=== PATIENT | female | born 1975 | race Caucasian/White ===

== ENCOUNTER 2018-01-04 04:58 | Observation (INO) | payer SELFPAY ==
[~2018-01-04] VITALS: Ht 162.6 cm; Wt 74.9 kg
--- NOTE | 2018-01-04 05:31 | PHYS DOC ---
Past Medical History Past Medical History: Diabetes-Type II, Hypertension Past Surgical History: Cholecystectomy Alcohol Use: Occasionally Drug Use: None Adult General Chief Complaint Chief Complaint: COUGH HPI HPI Patient is a 42 year old female p/w cc of cough she had fever and mild cough earlier this week she had body aches and genearlized weakness. last fever was thrusday night she thinks up to 102. the last couple days she has been generally weak hard for her to get out of bed. chest tightenss with coughing. tonight got worse much more sob with lying flat just generally weak. no vomiting or diarrhea. mild h/a with coughing. pmh: denies but hasnt seen md in five year. pt has hx of smoking, and occ etoh. CARE TO shayleemagdalena pending workup in er, broad ddx at this tiem. Review of Systems Review of Systems Constitutional: Eyes: Denies change in visual acuity, redness, or eye pain [] HENT: Denies nasal congestion or sore throat [] Respiratory: Cardiovascular: GI: Denies abdominal pain, nausea, vomiting, bloody stools or diarrhea [] : Denies dysuria Musculoskeletal: Denies back pain or joint pain [] Neurologic: Denies , focal weakness or sensory changes [] Endocrine: Denies polyuria or polydipsia [] All other systems were reviewed and found to be within normal limits, except as documented in this note. Current Medications Current Medications Current Medications Medications (Trade) Dose Ordered Sig/Frederic Start Time Stop Time Status Last Admin Dose Admin Acetaminophen (Tylenol) 1,000 mg 1X ONCE 01/04/18 06:00 01/04/18 06:01 DC 01/04/18 06:06 1,000 MG Albuterol/ Ipratropium (Duoneb) 3 ml 1X ONCE 01/04/18 07:00 01/04/18 07:01 DC 01/04/18 07:33 3 ML Ceftriaxone Sodium 50 ml @ 100 mls/hr 1X ONCE 01/04/18 07:30 01/04/18 07:59 DC 01/04/18 07:33 100 MLS/HR Sodium Chloride 1,000 ml @ 1,000 mls/hr 1X ONCE 01/04/18 07:30 01/04/18 08:29 DC 01/04/18 07:34 1,000 MLS/HR Allergies Allergies Allergies Coded Allergies Type Severity Reaction Last Updated Verified No Known Drug Allergies 11/12/14 No Physical Exam Physical Exam Constitutional: Well developed, well nourished, moderate distress. HENT: Normocephalic, atraumatic, bilateral external ears normal, oropharynx moist, no oral exudates, nose normal. [] Eyes: PERRLA, EOMI, conjunctiva normal, no discharge. [] Neck: Normal range of motion, no tenderness, supple, no stridor. [] Cardiovascular:tachycardic no definite murmur noted. Lungs & Thorax: wheezing noted b/l Abdomen: Bowel sounds normal, soft, no tenderness, no masses, no pulsatile masses. [] Skin: Warm, dry, no erythema, no rash. [] Extremities: No tenderness, no cyanosis, no clubbing, ROM intact, trace symmetric edema Neurologic: Alert and oriented X 3, normal motor function, normal sensory function, no focal deficits noted. [] Psychologic: Affect normal, judgement normal, mood mild anxious Current Patient Data Vital Signs Vital Signs Date Time Temp Pulse Resp B/P (MAP) Pulse Ox O2 Delivery O2 Flow Rate FiO2 01/04/18 07:33 Room Air 01/04/18 07:00 108 28 174/98 (123) 97 01/04/18 05:17 98.3 98.3 Lab Values Laboratory Tests Test 01/04/18 05:35 01/04/18 05:41 01/04/18 08:58 Urine Collection Type Unknown Urine Color Yellow Urine Clarity Clear Urine pH 6.0 Urine Specific [place] >=1.030 Urine Protein 100 mg/dL (NEG-TRACE) Urine Glucose (UA) >=1000 mg/dL (NEG) Urine Ketones (Stick) Negative mg/dL (NEG) Urine Blood Large (NEG) Urine Nitrite Negative (NEG) Urine Bilirubin Negative (NEG) Urine Urobilinogen Dipstick 0.2 mg/dL (0.2 mg/dL) Urine Leukocyte Esterase Negative (NEG) Urine RBC >40 /HPF (0-2) Urine WBC 0 /HPF (0-4) Urine Bacteria 0 /HPF (0-FEW) Urine Opiates Screen Neg (NEG) Urine Methadone Screen Neg (NEG) Urine Barbiturates Neg (NEG) Urine Phencyclidine Screen Neg (NEG) Urine Amphetamine/Methamphetamine Neg (NEG) Urine Benzodiazepines Screen Neg (NEG) Urine Cocaine Screen Neg (NEG) Urine Cannabinoids Screen Neg (NEG) Urine Ethyl Alcohol Neg (NEG) White Blood Count 12.7 x10^3/uL (4.0-11.0) H Red Blood Count 4.93 x10^6/uL (3.50-5.40) Hemoglobin 16.8 g/dL (12.0-15.5) H Hematocrit 47.0 % (36.0-47.0) Mean Corpuscular Volume 95 fL (79-100) Mean Corpuscular Hemoglobin 34 pg (25-35) Mean Corpuscular Hemoglobin Concent 36 g/dL (31-37) Red Cell Distribution Width 12.9 % (11.5-14.5) Platelet Count 280 x10^3/uL (140-400) Neutrophils (%) (Auto) 78 % (31-73) H Lymphocytes (%) (Auto) 15 % (24-48) L Monocytes (%) (Auto) 7 % (0-9) Eosinophils (%) (Auto) 0 % (0-3) Basophils (%) (Auto) 0 % (0-3) Neutrophils # (Auto) 9.8 x10^3uL (1.8-7.7) H Lymphocytes # (Auto) 1.9 x10^3/uL (1.0-4.8) Monocytes # (Auto) 0.9 x10^3/uL (0.0-1.1) Eosinophils # (Auto) 0.1 x10^3/uL (0.0-0.7) Basophils # (Auto) 0.1 x10^3/uL (0.0-0.2) Prothrombin Time 14.0 SEC (11.7-14.0) Prothrombin Time INR 1.1 (0.8-1.1) D-Dimer (Aruna) 0.27 ug/mlFEU (0.00-0.50) Maternal Serum HCG Beta Subunit < 1 mIU/mL (0-5) Sodium Level 135 mmol/L (136-145) L Potassium Level 3.9 mmol/L (3.5-5.1) Chloride Level 98 mmol/L (98-107) Carbon Dioxide Level 27 mmol/L (21-32) Anion Gap 10 (6-14) Blood Urea Nitrogen 2 mg/dL (7-20) L Creatinine 0.8 mg/dL (0.6-1.0) Estimated GFR (Cockcroft-Gault) 79.4 BUN/Creatinine Ratio 3 (6-20) L Glucose Level 327 mg/dL (70-99) H Hemoglobin A1c 8.2 % (4.8-5.6) H Lactic Acid Level 3.8 mmol/L (0.4-2.0) H 3.7 mmol/L (0.4-2.0) H Calcium Level 9.1 mg/dL (8.5-10.1) Total Bilirubin 0.6 mg/dL (0.2-1.0) Aspartate Amino Transferase (AST) 34 U/L (15-37) Alanine Aminotransferase (ALT) 52 U/L (14-59) Alkaline Phosphatase 125 U/L (46-116) H Troponin I Quantitative < 0.017 ng/mL (0.000-0.055) CA-Hua-F-Type Natriuretic Peptide 30 pg/mL (0-124) Total Protein 8.0 g/dL (6.4-8.2) Albumin 3.4 g/dL (3.4-5.0) Albumin/Globulin Ratio 0.7 (1.0-1.7) L Thyroid Stimulating Hormone (TSH) 1.916 uIU/mL (0.358-3.74) Influenza Type A Antigen Negative (NEGATIVE) Influenza Type B Antigen Negative (NEGATIVE) Laboratory Tests 01/04/18 05:41 Laboratory Tests 01/04/18 05:41 Microbiology 01/04/18 Blood Culture - Preliminary, Resulted NO GROWTH AFTER 4 DAYS EKG EKG [] Interpretation Time: Sinus tachycardia rate 119 no acute ischemic changes noted intervals are normal this was interpreted by me the time of the clinical encounter. Radiology/Procedures Radiology/Procedures [ER physician preliminary chest x-ray interpretation: No acute abnormality.] Course & Med Decision Making Course & Med Decision Making Pertinent Labs and Imaging studies reviewed. (See chart for details) []This is a 42-year-old female with a history of smoking who has presented to the emergency room with chief complaint of cough as well as shortness of breath and generalized weakness in the setting of a recent what sounded like a flulike illness earlier this week. Patient is found to have hypertension 186 tachycardic to the 140s patient had wheezing on lung examination concerned about cardiac etiology possibly extensive workup has been initiated EKG x-ray lab work including TSH flu swab cultures lactate BNP troponins d-dimer care to dr reeder pending results. 6:40 AM: Patient is a 42-year-old female who presents to the emergency department for evaluation. Care was assumed from Dr. Fletcher at shift change. She has had a nonproductive cough and shortness of breath for the past several days as well as generalized weakness and some myalgias. She states she had fever and Friday but not since then. She states she has been eating and drinking normally and has not had any vomiting or abdominal pain. She denies any chest pain. She was noted to be tachycardic on arrival. The patient' s labs been reviewed and are notable for an elevated lactic acid. I have reviewed the patient's chest x-ray, I do not see any definite infiltrates. The patient is currently on her menstrual cycle, which likely explains the blood on the urinalysis. She is not having any urinary symptoms. Patient states that 5-6 years ago when she was hospitalized with pneumonia she was on insulin but then her doctor took her off diabetes medications and she is not known to be diabetic at this time. She does not take any other medications. PHYSICAL EXAM: CONSTITUTIONAL: Well developed, well nourished HEAD: normocephalic, atraumatic EENT: PERRL, EOMI. Conjunctivae normal color, sclerae non-icteric; moist mucous membranes. NECK: Supple, non-tender; no meningismus. LUNGS: There are mild scattered wheezes at the lung bases, breathing even and unlabored. Normal air movement. HEART: Regular tachycardia, no murmur CHEST: No deformity; non-tender ABDOMEN: The abdomen is soft, and non-tender, no masses or bruits. EXTREM: Normal ROM; no deformity, no calf tenderness. Normal pulses palpable in all extremities. There is no pedal edema. SKIN: No rash; no diaphoresis NEURO: Alert; normal speech and cognition; CN's grossly intact; strength grossly intact without focal deficit. BACK: No CVA TTP. 8:00 AM: The patient's condition remained stable. She is feeling significantly better after IV hydration and her heart rate is dropped below 100. I do not have a clear bacterial source of her illness, although her clinical diagnoses of bronchitis coupled with her elevated lactic acid, tachycardia, and mild leukocytosis does raise the question of a possible bacterial component to her illness. She will be given a dose of Rocephin intravenously, IV hydration will be initiated and a lactic acid will be rechecked. If her labs improve, as her clinical condition has, the patient will be safe for discharge. I discussed the importance of smoking cessation in detail with the patient, will also start on medication for her diabetes, and hypertension and I stressed importance of establishing care with a primary care provider, in the next several days so that the patient can have these chronic health conditions better managed in an outpatient setting. I discussed importance of close follow-up and return precautions in detail. 9:40 AM: The patient's condition remained stable and she clinically looks well, her heart rate remains about 100 bpm. However her repeat lactic acid is still elevated. Thus the patient will be admitted to the hospital for further evaluation and treatment. Hospitalist has been paged to facilitate admission. Dragon Disclaimer Dragon Disclaimer This electronic medical record was generated, in whole or in part, using a voice recognition dictation system. Departure Departure Impression: Primary Impression: Bronchitis Additional Impressions: Diabetes Hypertension Lactic acidosis Disposition: ADMITTED INPATIENT Admitting Physician: Ansley Momin Condition: STABLE Additional Instructions: Use the list provided of primary care providers to help establish a primary care provider for outpatient follow-up and management of your diabetes and elevated blood pressure. Scripts Insulin Lispro (HUMALOG) 100 Unit/1 Ml Insuln.pen 0 UNITS SQ TIDWMEALS for DM for 30 Days, #1 EACH BG >150 - 4u BG >200 - 5u BG > 250 - 7u BG >300 - 9u Prov: SARAH LOCKETT MD 01/05/18 Glyburide (GLYBURIDE) 5 Mg Tablet 5 MG PO BIDWMEALS for DM for 30 Days, #60 TAB Prov: SARAH LOCKETT MD 01/05/18 Lisinopril (LISINOPRIL) 10 Mg Tablet 10 MG PO DAILY for HTN, DM for 30 Days, #30 TAB Prov: SARAH LOCKETT MD 01/05/18 Problem Qualifiers FRANCESCO FLETCHER MD Jan 04, 2018 05:31 DEVON REEDER MD Jan 04, 2018 06:53
[2018-01-04] MEDS ORDERED: ACETAMINOPHEN 500 MG TABLET PO ONE (06:00)
[2018-01-04] MEDS ORDERED: IV NORMAL SALINE 500ML BAG 500 ML IV ONE (06:00)
[2018-01-04 06:15] LABS: BASO # 0.1 x10^3/uL (0.0-0.2); BASO % 0 % (0-3); EOS # 0.1 x10^3/uL (0.0-0.7); EOS % 0 % (0-3); HEMOGLOBIN 16.8 g/dL (12.0-15.5); LYMPH # 1.9 x10^3/uL (1.0-4.8); LYMPH % 15 % (24-48); MEAN CORPUSCULAR HEMOGLOBIN 34 pg (25-35); MEAN CORPUSCULAR HGB CONC 36 g/dL (31-37); MEAN CORPUSCULAR VOLUME 95 fL (79-100); MONO # 0.9 x10^3/uL (0.0-1.1); MONO % 7 % (0-9); NEUT # 9.8 x10^3uL (1.8-7.7); NEUT % 78 % (31-73); PLATELET COUNT 280 x10^3/uL (140-400); RED BLOOD COUNT 4.93 x10^6/uL (3.50-5.40); RED CELL DISTRIBUTION WIDTH 12.9 % (11.5-14.5); WHITE BLOOD COUNT 12.7 x10^3/uL (4.0-11.0)
[2018-01-04 06:19] LABS: CALCIUM 9.1 mg/dL (8.5-10.1); CREATININE 0.8 mg/dL (0.6-1.0); GFR 79.4; POTASSIUM 3.9 mmol/L (3.5-5.1)
[2018-01-04 06:20] LABS: BILIRUBIN,URINE NEGATIVE (NEG); CLARITY,URINE CLEAR; COLOR,URINE YELLOW; NITRITE,URINE NEGATIVE (NEG); PROTEIN,URINE 100 mg/dL (NEG-TRACE); UROBILINOGEN,URINE 0.2 mg/dL (0.2 mg/dL)
[2018-01-04 06:22] LABS: INFLUENZA A PATIENT NEGATIVE (NEGATIVE); INFLUENZA B PATIENT NEGATIVE (NEGATIVE)
[2018-01-04 06:25] LABS: ALBUMIN 3.4 g/dL (3.4-5.0); ALBUMIN/GLOBULIN RATIO 0.7 (1.0-1.7); TOTAL BILIRUBIN 0.6 mg/dL (0.2-1.0)
[2018-01-04 06:27] LABS: AMPHETAMINE/METHAMPHETAMINE NEG (NEG); BARBITURATES NEG (NEG); BENZODIAZEPINES NEG (NEG); CANNABINOIDS NEG (NEG); COCAINE NEG (NEG); METHADONE NEG (NEG); OPIATES NEG (NEG); PHENCYCLIDINE NEG (NEG)
[2018-01-04 06:39] LABS: BACTERIA,URINE 0 /HPF (0-FEW); RBC,URINE >40 /HPF (0-2); WBC,URINE 0 /HPF (0-4)
[2018-01-04 06:50] LABS: D-DIMER 0.27 ug/mlFEU (0.00-0.50)
[2018-01-04] MEDS ORDERED: IPRATRPIUM/ALBUTEROL 0.5/2.5MG 3 ML NEBU. NEB ONE (07:00)
[2018-01-04] MEDS ORDERED: IV NORMAL SALINE 1000ML BAG 1,000 ML IV ONE ×3 (07:30→10:15)
[2018-01-04] MEDS ORDERED: PROAIR HFA8.5 GM INH (08:00)
[2018-01-04] MEDS ORDERED: METF500T16 PO (08:00)
[2018-01-04] MEDS ORDERED: LISI10TA2 PO (08:00)
[2018-01-04] MEDS ORDERED: AZIT250T6 PO (09:01)
--- NOTE | 2018-01-04 09:35 | RAD ---
Single view chest 01/04/2018 CLINICAL INDICATION: Cough. COMPARISON: None. FINDINGS: Cardiac and mediastinal silhouettes are unremarkable. No pleural effusion, pneumothorax or focal consolidation. IMPRESSION: No acute cardiopulmonary abnormality. Electronically signed by: Jim Iraheta MD (01/04/2018 9:32 AM) [facility]
[2018-01-04] MEDS ORDERED: guaiFENesin DM 200MG/20MG 10 ML SYRUP PO PRN (10:15)
[2018-01-04] MEDS ORDERED: CETIRIZINE HCL 10 MG TABLET. PO PRN (10:15)
[2018-01-04] MEDS ORDERED: HYDROcodone/APAP 5/325MG 1 TAB TABLET PO PRN (10:15)
[2018-01-04] MEDS ORDERED: ONDANSETRON ODT 4 MG TAB.RAPDIS. PO PRN (10:15)
[2018-01-04] MEDS ORDERED: MORPHINE SULFATE 2 MG/ML VIAL. IV PRN (10:15)
[2018-01-04] MEDS ORDERED: ACETAMINOPHEN 500 MG TABLET PO PRN (10:15)
[2018-01-04] MEDS ORDERED: LABETALOL 20 MG/4 ML DISP.SYRIN. IVP PRN (10:15)
[2018-01-04] MEDS ORDERED: ONDANSETRON PF 4 MG/2 ML VIAL. IV PRN (10:15)
[2018-01-04 10:45] VITALS: BP 161/110
[2018-01-04] MEDS ORDERED: IPRATRPIUM/ALBUTEROL 0.5/2.5MG 3 ML NEBU. NEB SCH (11:00)
[2018-01-04] MEDS: IPRATRPIUM/ALBUTEROL 0.5/2.5MG 3 ML NEBU. NEB SCH ×3 (11:30→19:41)
[2018-01-04] MEDS ORDERED: NICOTINE 21MG PATCH. TD PRN (12:45)
[2018-01-04] MEDS ORDERED: ENALAPRILAT 2.5 MG/2 ML VIAL. IVP PRN (12:45)
[2018-01-04] MEDS: IV NORMAL SALINE 1000ML BAG 1,000 ML IV SCH ×2 (12:45→20:26)
--- NOTE | 2018-01-04 12:47 | PDOC1 ---
History and Physical Date of Admission Date of Admission DATE: 01/04/18 TIME: 12:40 Identification/Chief Complaint Chief Complaint Flulike symptoms 1 week Source Source: Caregiver, Chart review, Patient History of Present Illness History of Present Illness 42-year-old female, diabetes but off metformin because of diarrhea, comes in because of flulike symptoms for about a week. Chest x-ray and UA is negative except for glucosuria. But ER could not discharge because lactate was high twice despite 4 L of boluses. WBC 12, she looks nontoxic appearing. Flu is negative. Chest x-rays negative. Agree with admission. She was tachycardic 140s of admission better now after 4 L boluses. Blood pressure initially was high 180s, she is not taking any meds at home SHe describes cough, productive, fever undocumented at home, no diarrhea. She does smoke. She claims there are similar symptoms going around at work. She wa son metformin and insulin at home, but taken off since "not needing it". UNKnown hemoglobin A1c but there is glucosuria on urine. Her sugars are 286 Past Medical History Cardiovascular: HTN Pulmonary: Bronchitis Endocrine: Diabetes Past Surgical History Past Surgical History: Cholecystectomy Family History Family History: Hypertension Social History Smoke: <1 pack per day ALCOHOL: occassional Drugs: None Current Problem List Problem List Problems Medical Problems: (1) Bronchitis Status: Acute (2) Diabetes Status: Acute (3) Hypertension Status: Acute (4) Lactic acidosis Status: Acute Current Medications Current Medications Current Medications Sodium Chloride 500 ml @ 500 mls/hr 1X ONCE IV Last administered on at 06:07; Start 01/04/18 at 06:00; Stop 01/04/18 at 06:59; Status DC Acetaminophen (Tylenol) 1,000 mg 1X ONCE PO Last administered on 01/04/18at 06 :06; Start 01/04/18 at 06:00; Stop 01/04/18 at 06:01; Status DC Sodium Chloride 1,000 ml @ 1,000 mls/hr 1X ONCE IV Last administered on 01/04at 07:33; Start 01/04/18 at 07:30; Stop 01/04/18 at 08:29; Status DC Sodium Chloride 1,000 ml @ 1,000 mls/hr 1X ONCE IV Last administered on 01/04at 07:34; Start 01/04/18 at 07:30; Stop 01/04/18 at 08:29; Status DC Albuterol/ Ipratropium (Duoneb) 3 ml 1X ONCE NEB Last administered on at 07:33; Start 01/04/18 at 07:00; Stop 01/04/18 at 07:01; Status DC Ceftriaxone Sodium 50 ml @ 100 mls/hr 1X ONCE IV Last administered on at 07:33; Start 01/04/18 at 07:30; Stop 01/04/18 at 07:59; Status DC Guaifenesin (Robitussin Dm) 10 ml PRN Q6HRS PRN PO COUGH; Start 01/04/18 at 10 :15 Albuterol/ Ipratropium (Duoneb) 3 ml RTQID NEB Last administered on 01/04/18at 11:30; Start 01/04/18 at 12:00 Acetaminophen (Tylenol) 500 mg PRN Q6HRS PRN PO MILD PAIN / TEMP; Start at 10:15 Labetalol HCl (Normodyne Iv Push) 20 mg PRN Q2HR PRN IVP HYPERTENSION, SEE COMMENTS Last administered on 01/04/18at 11:28; Start 01/04/18 at 10:15 Cetirizine HCl (ZyrTEC) 10 mg PRN DAILY PRN PO ALLERGIES; Start 01/04/18 at 10 :15 Ondansetron HCl (Zofran) 4 mg PRN Q6HRS PRN IV NAUSEA/VOMITING; Start at 10:15 Ondansetron HCl (Zofran Odt) 4 mg PRN Q6HRS PRN PO NAUSEA/VOMITING; Start at 10:15 Morphine Sulfate (Morphine Sulfate) 2 mg PRN Q2HR PRN IV MODERATE TO SEVERE PAIN; Start 01/04/18 at 10:15 Acetaminophen/ Hydrocodone Bitart (Lortab 5/325) 1 tab PRN Q4HRS PRN PO MODERATE PAIN; Start 01/04/18 at 10:15 Sodium Chloride 1,000 ml @ 125 mls/hr 1X ONCE IV Last administered on at 11:36; Start 01/04/18 at 10:15; Stop 01/04/18 at 18:14 Albuterol/ Ipratropium (Duoneb) 3 ml Q6H NEB ; Start 01/04/18 at 11:00; Status UNV Active Scripts Active Allergies Allergies: Coded Allergies: No Known Drug Allergies (Unverified , 11/12/14) ROS Review of System As per history of present illness, the rest of ROS 14 point negative Physical Exam General: Alert, Oriented X3, Cooperative, No acute distress HEENT: Atraumatic, PERRLA, EOMI Lungs: Clear to auscultation, Normal air movement Heart: S1S2, RRR, no thrills, no rubs, no gallops, no murmurs Cardiovascular: S1, S2 Breasts: Normal Abdomen: Normal bowel sounds Male Genitals Exam: normal genitalia, normal prostate Rectal Exam: not examined PELVIC: Nml ext genitalia Extremities: No clubbing, No cyanosis, No edema, Normal pulses, No tenderness/ swelling Skin: No rashes, No breakdown, No significant lesion Neuro: Normal gait, Normal speech, Strength at 5/5 X4 ext, Normal tone, Sensation intact, Cranial nerves 3-12 NL, Reflexes 2+ Psych/Mental Status: Mental status NL, Mood NL Vitals Vitals Vital Signs Date Time Temp Pulse Resp B/P (MAP) Pulse Ox O2 Delivery O2 Flow Rate FiO2 01/04/18 11:31 Room Air 01/04/18 11:28 90 163/106 01/04/18 10:45 97.9 18 95 97.9 Labs Labs Laboratory Tests Test 01/04/18 05:35 01/04/18 05:41 01/04/18 08:58 01/04/18 11:55 Urine Collection Type Unknown Urine Color Yellow Urine Clarity Clear Urine pH 6.0 Urine Specific [place] >=1.030 Urine Protein 100 mg/dL (NEG-TRACE) Urine Glucose (UA) >=1000 mg/dL (NEG) Urine Ketones (Stick) Negative mg/dL (NEG) Urine Blood Large (NEG) Urine Nitrite Negative (NEG) Urine Bilirubin Negative (NEG) Urine Urobilinogen Dipstick 0.2 mg/dL (0.2 mg/dL) Urine Leukocyte Esterase Negative (NEG) Urine RBC >40 /HPF (0-2) Urine WBC 0 /HPF (0-4) Urine Bacteria 0 /HPF (0-FEW) Urine Opiates Screen Neg (NEG) Urine Methadone Screen Neg (NEG) Urine Barbiturates Neg (NEG) Urine Phencyclidine Screen Neg (NEG) Urine Amphetamine/Methamphetamine Neg (NEG) Urine Benzodiazepines Screen Neg (NEG) Urine Cocaine Screen Neg (NEG) Urine Cannabinoids Screen Neg (NEG) Urine Ethyl Alcohol Neg (NEG) White Blood Count 12.7 x10^3/uL (4.0-11.0) Red Blood Count 4.93 x10^6/uL (3.50-5.40) Hemoglobin 16.8 g/dL (12.0-15.5) Hematocrit 47.0 % (36.0-47.0) Mean Corpuscular Volume 95 fL (79-100) Mean Corpuscular Hemoglobin 34 pg (25-35) Mean Corpuscular Hemoglobin Concent 36 g/dL (31-37) Red Cell Distribution Width 12.9 % (11.5-14.5) Platelet Count 280 x10^3/uL (140-400) Neutrophils (%) (Auto) 78 % (31-73) Lymphocytes (%) (Auto) 15 % (24-48) Monocytes (%) (Auto) 7 % (0-9) Eosinophils (%) (Auto) 0 % (0-3) Basophils (%) (Auto) 0 % (0-3) Neutrophils # (Auto) 9.8 x10^3uL (1.8-7.7) Lymphocytes # (Auto) 1.9 x10^3/uL (1.0-4.8) Monocytes # (Auto) 0.9 x10^3/uL (0.0-1.1) Eosinophils # (Auto) 0.1 x10^3/uL (0.0-0.7) Basophils # (Auto) 0.1 x10^3/uL (0.0-0.2) Prothrombin Time 14.0 SEC (11.7-14.0) Prothromb Time International Ratio 1.1 (0.8-1.1) D-Dimer (Aruna) 0.27 ug/mlFEU (0.00-0.50) Maternal Serum HCG Beta Subunit < 1 mIU/mL (0-5) Sodium Level 135 mmol/L (136-145) Potassium Level 3.9 mmol/L (3.5-5.1) Chloride Level 98 mmol/L (98-107) Carbon Dioxide Level 27 mmol/L (21-32) Anion Gap 10 (6-14) Blood Urea Nitrogen 2 mg/dL (7-20) Creatinine 0.8 mg/dL (0.6-1.0) Estimated GFR (Cockcroft-Gault) 79.4 BUN/Creatinine Ratio 3 (6-20) Glucose Level 327 mg/dL (70-99) Lactic Acid Level 3.8 mmol/L (0.4-2.0) 3.7 mmol/L (0.4-2.0) Calcium Level 9.1 mg/dL (8.5-10.1) Total Bilirubin 0.6 mg/dL (0.2-1.0) Aspartate Amino Transf (AST/SGOT) 34 U/L (15-37) Alanine Aminotransferase (ALT/SGPT) 52 U/L (14-59) Alkaline Phosphatase 125 U/L (46-116) Troponin I Quantitative < 0.017 ng/mL (0.000-0.055) MP-Sph-B-Type Natriuretic Peptide 30 pg/mL (0-124) Total Protein 8.0 g/dL (6.4-8.2) Albumin 3.4 g/dL (3.4-5.0) Albumin/Globulin Ratio 0.7 (1.0-1.7) Thyroid Stimulating Hormone (TSH) 1.916 uIU/mL (0.358-3.74) Influenza Type A Antigen Negative (NEGATIVE) Influenza Type B Antigen Negative (NEGATIVE) Glucose (Fingerstick) 247 mg/dL (70-99) Laboratory Tests Test 01/04/18 05:35 01/04/18 05:41 01/04/18 08:58 01/04/18 11:55 Urine Collection Type Unknown Urine Color Yellow Urine Clarity Clear Urine pH 6.0 Urine Specific [place] >=1.030 Urine Protein 100 mg/dL (NEG-TRACE) Urine Glucose (UA) >=1000 mg/dL (NEG) Urine Ketones (Stick) Negative mg/dL (NEG) Urine Blood Large (NEG) Urine Nitrite Negative (NEG) Urine Bilirubin Negative (NEG) Urine Urobilinogen Dipstick 0.2 mg/dL (0.2 mg/dL) Urine Leukocyte Esterase Negative (NEG) Urine RBC >40 /HPF (0-2) Urine WBC 0 /HPF (0-4) Urine Bacteria 0 /HPF (0-FEW) Urine Opiates Screen Neg (NEG) Urine Methadone Screen Neg (NEG) Urine Barbiturates Neg (NEG) Urine Phencyclidine Screen Neg (NEG) Urine Amphetamine/Methamphetamine Neg (NEG) Urine Benzodiazepines Screen Neg (NEG) Urine Cocaine Screen Neg (NEG) Urine Cannabinoids Screen Neg (NEG) Urine Ethyl Alcohol Neg (NEG) White Blood Count 12.7 x10^3/uL (4.0-11.0) Red Blood Count 4.93 x10^6/uL (3.50-5.40) Hemoglobin 16.8 g/dL (12.0-15.5) Hematocrit 47.0 % (36.0-47.0) Mean Corpuscular Volume 95 fL (79-100) Mean Corpuscular Hemoglobin 34 pg (25-35) Mean Corpuscular Hemoglobin Concent 36 g/dL (31-37) Red Cell Distribution Width 12.9 % (11.5-14.5) Platelet Count 280 x10^3/uL (140-400) Neutrophils (%) (Auto) 78 % (31-73) Lymphocytes (%) (Auto) 15 % (24-48) Monocytes (%) (Auto) 7 % (0-9) Eosinophils (%) (Auto) 0 % (0-3) Basophils (%) (Auto) 0 % (0-3) Neutrophils # (Auto) 9.8 x10^3uL (1.8-7.7) Lymphocytes # (Auto) 1.9 x10^3/uL (1.0-4.8) Monocytes # (Auto) 0.9 x10^3/uL (0.0-1.1) Eosinophils # (Auto) 0.1 x10^3/uL (0.0-0.7) Basophils # (Auto) 0.1 x10^3/uL (0.0-0.2) Prothrombin Time 14.0 SEC (11.7-14.0) Prothromb Time International Ratio 1.1 (0.8-1.1) D-Dimer (Aruna) 0.27 ug/mlFEU (0.00-0.50) Maternal Serum HCG Beta Subunit < 1 mIU/mL (0-5) Sodium Level 135 mmol/L (136-145) Potassium Level 3.9 mmol/L (3.5-5.1) Chloride Level 98 mmol/L (98-107) Carbon Dioxide Level 27 mmol/L (21-32) Anion Gap 10 (6-14) Blood Urea Nitrogen 2 mg/dL (7-20) Creatinine 0.8 mg/dL (0.6-1.0) Estimated GFR (Cockcroft-Gault) 79.4 BUN/Creatinine Ratio 3 (6-20) Glucose Level 327 mg/dL (70-99) Lactic Acid Level 3.8 mmol/L (0.4-2.0) 3.7 mmol/L (0.4-2.0) Calcium Level 9.1 mg/dL (8.5-10.1) Total Bilirubin 0.6 mg/dL (0.2-1.0) Aspartate Amino Transf (AST/SGOT) 34 U/L (15-37) Alanine Aminotransferase (ALT/SGPT) 52 U/L (14-59) Alkaline Phosphatase 125 U/L (46-116) Troponin I Quantitative < 0.017 ng/mL (0.000-0.055) TF-Azn-B-Type Natriuretic Peptide 30 pg/mL (0-124) Total Protein 8.0 g/dL (6.4-8.2) Albumin 3.4 g/dL (3.4-5.0) Albumin/Globulin Ratio 0.7 (1.0-1.7) Thyroid Stimulating Hormone (TSH) 1.916 uIU/mL (0.358-3.74) Influenza Type A Antigen Negative (NEGATIVE) Influenza Type B Antigen Negative (NEGATIVE) Glucose (Fingerstick) 247 mg/dL (70-99) VTE Prophylaxis Ordered VTE Prophylaxis Devices: Yes VTE Pharmacological Prophylaxi: Yes Assessment/Plan Assessment/Plan Sepsis, so far workup negative Likely acute viral syndrome Flu negative, UA negative, chest are negative for infection Diabetes type 2 with a unknown hemoglobin [id number] medications, previously on insulin with glucosuria HX intolerance to metformin Accelerated hypertension-not diagnosed hypertensive but BP running high despite IV labetalol pushes Overweight, BMI 31 PLAN: Admit 2 MN IV fluids to address viral syndrome Recheck leukocytosis tomorrow Hold off abx - likely viral only Recheck lactate tomorrow After discussion about metformin is a very good drug to lower his A1c and that insulin is an anabolic hormone and can cause weight gain if use prolonged-type she agrees to try metformin again Last dose of metformin was 5 years ago where she had some abdominal discomfort which seems to be rather mild Metformin 500 twice a day Check hemoglobin A1c Start glyburide twice a day with meals Study scale insulin high-dose Diabetes education Start lisinopril HCTZ-blood pressure still running high despite labetalol Vasotec when necessary Vasotec now Discussed with ALEJANDRA MELCHOR MD Jan 04, 2018 12:47
[2018-01-04] MEDS ORDERED: ENALAPRILAT 2.5 MG/2 ML VIAL. IVP ONE (13:00)
[2018-01-04] MEDS ORDERED: DEXTROSE 50% 25 GM / 50ML DISP.SYRIN. IV PRN (13:00)
[2018-01-04] MEDS: metFORMIN 500 MG TABLET PO SCH ×2 (14:09→18:09)
[2018-01-04] MEDS: hydroCHLOROthiazide 25 MG TABLET PO SCH (14:09)
[2018-01-04] MEDS: glyBURIDE 5 MG TABLET PO SCH ×2 (14:10→18:09)
[2018-01-04] MEDS: INSULIN LISPRO 300 UNITS/3 ML INSULN.PEN. SQ SCH ×2 (14:19→18:15)
[2018-01-04 15:00] VITALS: BP 150/90
--- NOTE | 2018-01-04 17:53 | EKG ---
[facility] [address] [place] [address] Test Date: 2018-01-04 Test Time: 05:40:29 Pat Name: JAIDEN FAN Department: Room: 663 1 Gender: Female Operations General Agent: DAR : 1975 Requested By: FRANCESCO CADE Order Number: [id number] Reading MD: Sb Jack MD Measurements Intervals [place] Rate: 118 P: 56 [place]: 122 QRS: 48 QRSD: 82 T: 38 QT: 332 QTc: 467 Interpretive Statements SINUS TACHYCARDIA Electronically Signed On 01-05-2018 8:27:40 [employer] by Sb Jack MD
[2018-01-04 19:00] VITALS: BP 164/97
[2018-01-04 22:48] VITALS: BP 134/95
[2018-01-05 03:25] VITALS: BP 147/97
[2018-01-05 05:39] LABS: BASO % 1 % (0-3); EOS # 0.1 x10^3/uL (0.0-0.7); EOS % 2 % (0-3); HEMATOCRIT 40.9 % (36.0-47.0); HEMOGLOBIN 14.4 g/dL (12.0-15.5); LYMPH % 39 % (24-48); MEAN CORPUSCULAR HEMOGLOBIN 34 pg (25-35); MEAN CORPUSCULAR HGB CONC 35 g/dL (31-37); MEAN CORPUSCULAR VOLUME 96 fL (79-100); MONO # 0.5 x10^3/uL (0.0-1.1); MONO % 6 % (0-9); NEUT # 4.1 x10^3uL (1.8-7.7); NEUT % 53 % (31-73); PLATELET COUNT 242 x10^3/uL (140-400); RED BLOOD COUNT 4.24 x10^6/uL (3.50-5.40); WHITE BLOOD COUNT 7.7 x10^3/uL (4.0-11.0)
[2018-01-05] MEDS: IPRATRPIUM/ALBUTEROL 0.5/2.5MG 3 ML NEBU. NEB SCH ×2 (07:27→11:17)
[2018-01-05 07:45] VITALS: BP 157/94
[2018-01-05] MEDS: INSULIN LISPRO 300 UNITS/3 ML INSULN.PEN. SQ SCH (08:00)
[2018-01-05] MEDS: hydroCHLOROthiazide 25 MG TABLET PO SCH (08:23)
[2018-01-05] MEDS: metFORMIN 500 MG TABLET PO SCH (08:23)
[2018-01-05] MEDS: glyBURIDE 5 MG TABLET PO SCH (08:24)
[2018-01-05] MEDS ORDERED: LISINOPRIL 10 MG TABLET PO SCH (09:00)
[2018-01-05 11:00] VITALS: BP 137/92
--- NOTE | 2018-01-05 11:55 | PDOC ---
PROGRESS NOTES Chief Complaint Chief Complaint Sepsis Diabetes type 2 with a unknown hemoglobin M2k-ita medications, previously on insulin with glucosuria HX intolerance to metformin Accelerated hypertension Overweight, BMI 31 History of Present Illness History of Present Illness Ms Trujillo is a 42yo F w/ PMHx DM2 admitted with accelerated HTN, lactic acidosis (no abdominal pain), sepsis syndrome, but likely viral bronchitis, negative influenza and she improved quickly with IVF, nausea control and BP control. Assessment/Plan Sepsis, so far workup negative - Likely acute viral syndrome Flu negative, UA negative, chest are negative for infection Diabetes type 2 with a unknown hemoglobin H2f-mxv medications, previously on insulin with glucosuria HX intolerance to metformin Accelerated hypertension-not diagnosed hypertensive but BP running high despite IV labetalol pushes - improved with HCTZ-lisinopril Overweight, BMI 31 lactate down to 2.1 on repeat After discussion about metformin is contraindicated due to her lactic acidosis, will started glyburide twice a day with meals Sliding scale insulin high-dose Diabetes education Started lisinopril HCTZ-blood pressure Vitals Vitals Vital Signs Date Time Temp Pulse Resp B/P (MAP) Pulse Ox O2 Delivery O2 Flow Rate FiO2 01/05/18 11:18 Room Air 01/05/18 11:00 98.1 86 18 137/92 (107) 98 98.1 Physical Exam General: Alert, Oriented X3, Cooperative, No acute distress Abdomen: Normal bowel sounds Extremities: No clubbing, No cyanosis, No edema, Normal pulses, No tenderness/ swelling Skin: No rashes, No breakdown, No significant lesion Labs LABS Laboratory Tests Test 01/04/18 17:05 01/04/18 20:40 01/05/18 05:10 01/05/18 07:54 Glucose (Fingerstick) 212 mg/dL (70-99) 87 mg/dL (70-99) 109 mg/dL (70-99) White Blood Count 7.7 x10^3/uL (4.0-11.0) Red Blood Count 4.24 x10^6/uL (3.50-5.40) Hemoglobin 14.4 g/dL (12.0-15.5) Hematocrit 40.9 % (36.0-47.0) Mean Corpuscular Volume 96 fL (79-100) Mean Corpuscular Hemoglobin 34 pg (25-35) Mean Corpuscular Hemoglobin Concent 35 g/dL (31-37) Red Cell Distribution Width 13.0 % (11.5-14.5) Platelet Count 242 x10^3/uL (140-400) Neutrophils (%) (Auto) 53 % (31-73) Lymphocytes (%) (Auto) 39 % (24-48) Monocytes (%) (Auto) 6 % (0-9) Eosinophils (%) (Auto) 2 % (0-3) Basophils (%) (Auto) 1 % (0-3) Neutrophils # (Auto) 4.1 x10^3uL (1.8-7.7) Lymphocytes # (Auto) 3.0 x10^3/uL (1.0-4.8) Monocytes # (Auto) 0.5 x10^3/uL (0.0-1.1) Eosinophils # (Auto) 0.1 x10^3/uL (0.0-0.7) Basophils # (Auto) 0.0 x10^3/uL (0.0-0.2) Lactic Acid Level 2.1 mmol/L (0.4-2.0) Test 01/05/18 11:39 Glucose (Fingerstick) 176 mg/dL (70-99) Assessment and Plan Assessmemt and Plan Problems Medical Problems: (1) Bronchitis Status: Acute (2) Diabetes Status: Acute (3) Hypertension Status: Acute (4) Lactic acidosis Status: Acute Comment Review of Relevant I have reviewed the following items nancy (where applicable) has been applied. Labs Laboratory Tests Test 01/04/18 05:35 01/04/18 05:41 01/04/18 08:58 01/04/18 11:55 Urine Collection Type Unknown Urine Color Yellow Urine Clarity Clear Urine pH 6.0 Urine Specific [place] >=1.030 Urine Protein 100 mg/dL (NEG-TRACE) Urine Glucose (UA) >=1000 mg/dL (NEG) Urine Ketones (Stick) Negative mg/dL (NEG) Urine Blood Large (NEG) Urine Nitrite Negative (NEG) Urine Bilirubin Negative (NEG) Urine Urobilinogen Dipstick 0.2 mg/dL (0.2 mg/dL) Urine Leukocyte Esterase Negative (NEG) Urine RBC >40 /HPF (0-2) Urine WBC 0 /HPF (0-4) Urine Bacteria 0 /HPF (0-FEW) Urine Opiates Screen Neg (NEG) Urine Methadone Screen Neg (NEG) Urine Barbiturates Neg (NEG) Urine Phencyclidine Screen Neg (NEG) Urine Amphetamine/Methamphetamine Neg (NEG) Urine Benzodiazepines Screen Neg (NEG) Urine Cocaine Screen Neg (NEG) Urine Cannabinoids Screen Neg (NEG) Urine Ethyl Alcohol Neg (NEG) White Blood Count 12.7 x10^3/uL (4.0-11.0) Red Blood Count 4.93 x10^6/uL (3.50-5.40) Hemoglobin 16.8 g/dL (12.0-15.5) Hematocrit 47.0 % (36.0-47.0) Mean Corpuscular Volume 95 fL (79-100) Mean Corpuscular Hemoglobin 34 pg (25-35) Mean Corpuscular Hemoglobin Concent 36 g/dL (31-37) Red Cell Distribution Width 12.9 % (11.5-14.5) Platelet Count 280 x10^3/uL (140-400) Neutrophils (%) (Auto) 78 % (31-73) Lymphocytes (%) (Auto) 15 % (24-48) Monocytes (%) (Auto) 7 % (0-9) Eosinophils (%) (Auto) 0 % (0-3) Basophils (%) (Auto) 0 % (0-3) Neutrophils # (Auto) 9.8 x10^3uL (1.8-7.7) Lymphocytes # (Auto) 1.9 x10^3/uL (1.0-4.8) Monocytes # (Auto) 0.9 x10^3/uL (0.0-1.1) Eosinophils # (Auto) 0.1 x10^3/uL (0.0-0.7) Basophils # (Auto) 0.1 x10^3/uL (0.0-0.2) Prothrombin Time 14.0 SEC (11.7-14.0) Prothromb Time International Ratio 1.1 (0.8-1.1) D-Dimer (Aruna) 0.27 ug/mlFEU (0.00-0.50) Maternal Serum HCG Beta Subunit < 1 mIU/mL (0-5) Sodium Level 135 mmol/L (136-145) Potassium Level 3.9 mmol/L (3.5-5.1) Chloride Level 98 mmol/L (98-107) Carbon Dioxide Level 27 mmol/L (21-32) Anion Gap 10 (6-14) Blood Urea Nitrogen 2 mg/dL (7-20) Creatinine 0.8 mg/dL (0.6-1.0) Estimated GFR (Cockcroft-Gault) 79.4 BUN/Creatinine Ratio 3 (6-20) Glucose Level 327 mg/dL (70-99) Lactic Acid Level 3.8 mmol/L (0.4-2.0) 3.7 mmol/L (0.4-2.0) Calcium Level 9.1 mg/dL (8.5-10.1) Total Bilirubin 0.6 mg/dL (0.2-1.0) Aspartate Amino Transf (AST/SGOT) 34 U/L (15-37) Alanine Aminotransferase (ALT/SGPT) 52 U/L (14-59) Alkaline Phosphatase 125 U/L (46-116) Troponin I Quantitative < 0.017 ng/mL (0.000-0.055) OG-Mwo-U-Type Natriuretic Peptide 30 pg/mL (0-124) Total Protein 8.0 g/dL (6.4-8.2) Albumin 3.4 g/dL (3.4-5.0) Albumin/Globulin Ratio 0.7 (1.0-1.7) Thyroid Stimulating Hormone (TSH) 1.916 uIU/mL (0.358-3.74) Influenza Type A Antigen Negative (NEGATIVE) Influenza Type B Antigen Negative (NEGATIVE) Glucose (Fingerstick) 247 mg/dL (70-99) Test 01/04/18 17:05 01/04/18 20:40 01/05/18 05:10 01/05/18 07:54 Glucose (Fingerstick) 212 mg/dL (70-99) 87 mg/dL (70-99) 109 mg/dL (70-99) White Blood Count 7.7 x10^3/uL (4.0-11.0) Red Blood Count 4.24 x10^6/uL (3.50-5.40) Hemoglobin 14.4 g/dL (12.0-15.5) Hematocrit 40.9 % (36.0-47.0) Mean Corpuscular Volume 96 fL (79-100) Mean Corpuscular Hemoglobin 34 pg (25-35) Mean Corpuscular Hemoglobin Concent 35 g/dL (31-37) Red Cell Distribution Width 13.0 % (11.5-14.5) Platelet Count 242 x10^3/uL (140-400) Neutrophils (%) (Auto) 53 % (31-73) Lymphocytes (%) (Auto) 39 % (24-48) Monocytes (%) (Auto) 6 % (0-9) Eosinophils (%) (Auto) 2 % (0-3) Basophils (%) (Auto) 1 % (0-3) Neutrophils # (Auto) 4.1 x10^3uL (1.8-7.7) Lymphocytes # (Auto) 3.0 x10^3/uL (1.0-4.8) Monocytes # (Auto) 0.5 x10^3/uL (0.0-1.1) Eosinophils # (Auto) 0.1 x10^3/uL (0.0-0.7) Basophils # (Auto) 0.0 x10^3/uL (0.0-0.2) Lactic Acid Level 2.1 mmol/L (0.4-2.0) Test 01/05/18 11:39 Glucose (Fingerstick) 176 mg/dL (70-99) Laboratory Tests Test 01/04/18 17:05 01/04/18 20:40 01/05/18 05:10 01/05/18 07:54 Glucose (Fingerstick) 212 mg/dL (70-99) 87 mg/dL (70-99) 109 mg/dL (70-99) White Blood Count 7.7 x10^3/uL (4.0-11.0) Red Blood Count 4.24 x10^6/uL (3.50-5.40) Hemoglobin 14.4 g/dL (12.0-15.5) Hematocrit 40.9 % (36.0-47.0) Mean Corpuscular Volume 96 fL (79-100) Mean Corpuscular Hemoglobin 34 pg (25-35) Mean Corpuscular Hemoglobin Concent 35 g/dL (31-37) Red Cell Distribution Width 13.0 % (11.5-14.5) Platelet Count 242 x10^3/uL (140-400) Neutrophils (%) (Auto) 53 % (31-73) Lymphocytes (%) (Auto) 39 % (24-48) Monocytes (%) (Auto) 6 % (0-9) Eosinophils (%) (Auto) 2 % (0-3) Basophils (%) (Auto) 1 % (0-3) Neutrophils # (Auto) 4.1 x10^3uL (1.8-7.7) Lymphocytes # (Auto) 3.0 x10^3/uL (1.0-4.8) Monocytes # (Auto) 0.5 x10^3/uL (0.0-1.1) Eosinophils # (Auto) 0.1 x10^3/uL (0.0-0.7) Basophils # (Auto) 0.0 x10^3/uL (0.0-0.2) Lactic Acid Level 2.1 mmol/L (0.4-2.0) Test 01/05/18 11:39 Glucose (Fingerstick) 176 mg/dL (70-99) Microbiology 01/04/18 Blood Culture - Preliminary, Resulted NO GROWTH AFTER 1 DAY Medications Current Medications Sodium Chloride 500 ml @ 500 mls/hr 1X ONCE IV Last administered on at 06:07; Start 01/04/18 at 06:00; Stop 01/04/18 at 06:59; Status DC Acetaminophen (Tylenol) 1,000 mg 1X ONCE PO Last administered on 01/04/18at 06 :06; Start 01/04/18 at 06:00; Stop 01/04/18 at 06:01; Status DC Sodium Chloride 1,000 ml @ 1,000 mls/hr 1X ONCE IV Last administered on 01/04at 07:33; Start 01/04/18 at 07:30; Stop 01/04/18 at 08:29; Status DC Sodium Chloride 1,000 ml @ 1,000 mls/hr 1X ONCE IV Last administered on 01/04at 07:34; Start 01/04/18 at 07:30; Stop 01/04/18 at 08:29; Status DC Albuterol/ Ipratropium (Duoneb) 3 ml 1X ONCE NEB Last administered on at 07:33; Start 01/04/18 at 07:00; Stop 01/04/18 at 07:01; Status DC Ceftriaxone Sodium 50 ml @ 100 mls/hr 1X ONCE IV Last administered on at 07:33; Start 01/04/18 at 07:30; Stop 01/04/18 at 07:59; Status DC Guaifenesin (Robitussin Dm) 10 ml PRN Q6HRS PRN PO COUGH; Start 01/04/18 at 10 :15 Albuterol/ Ipratropium (Duoneb) 3 ml RTQID NEB Last administered on 01/05/18at 11:17; Start 01/04/18 at 12:00 Acetaminophen (Tylenol) 500 mg PRN Q6HRS PRN PO MILD PAIN / TEMP Last administered on 01/04/18at 20:26; Start 01/04/18 at 10:15 Labetalol HCl (Normodyne Iv Push) 20 mg PRN Q2HR PRN IVP HYPERTENSION, SEE COMMENTS Last administered on 01/04/18at 11:28; Start 01/04/18 at 10:15 Cetirizine HCl (ZyrTEC) 10 mg PRN DAILY PRN PO ALLERGIES; Start 01/04/18 at 10 :15 Ondansetron HCl (Zofran) 4 mg PRN Q6HRS PRN IV NAUSEA/VOMITING; Start at 10:15 Ondansetron HCl (Zofran Odt) 4 mg PRN Q6HRS PRN PO NAUSEA/VOMITING; Start at 10:15 Morphine Sulfate (Morphine Sulfate) 2 mg PRN Q2HR PRN IV MODERATE TO SEVERE PAIN; Start 01/04/18 at 10:15 Acetaminophen/ Hydrocodone Bitart (Lortab 5/325) 1 tab PRN Q4HRS PRN PO MODERATE PAIN; Start 01/04/18 at 10:15 Sodium Chloride 1,000 ml @ 125 mls/hr 1X ONCE IV Last administered on at 11:36; Start 01/04/18 at 10:15; Stop 01/04/18 at 18:14; Status DC Albuterol/ Ipratropium (Duoneb) 3 ml Q6H NEB ; Start 01/04/18 at 11:00; Status UNV Metformin HCl (Glucophage) 500 mg BIDWMEALS PO Last administered on 01/05/18at 08:23; Start 01/04/18 at 13:00 Glyburide (Diabeta) 5 mg BIDWMEALS PO Last administered on 01/05/18at 08:24; Start 01/04/18 at 13:00 Sodium Chloride 1,000 ml @ 100 mls/hr Q10H IV Last administered on 01/04/18at 20:26; Start 01/04/18 at 12:45 Nicotine (Nicoderm Cq 21mg) 1 patch PRN DAILY PRN TD SMOKING CESSATION; Start 01/04/18 at 12:45 Enalaprilat (Vasotec Inj) 2.5 mg PRN Q6HRS PRN IVP HYPERTENSION, SEE COMMENTS; Start 01/04/18 at 12:45 Enalaprilat (Vasotec Inj) 2.5 mg 1X ONCE IVP Last administered on 01/04/18at 14:08; Start 01/04/18 at 13:00; Stop 01/04/18 at 13:01; Status DC Lisinopril (Prinivil) 10 mg DAILY PO Last administered on 01/05/18at 08:23; Start 01/05/18 at 09:00 Hydrochlorothiazide (Hydrodiuril) 25 mg DAILY PO Last administered on at 08:23; Start 01/04/18 at 13:00 Insulin Human Lispro (HumaLOG) 0-9 UNITS TIDWMEALS SQ Last administered on at 18:15; Start 01/04/18 at 13:00 Dextrose (Dextrose 50%-Water Syringe) 12.5 gm PRN Q15MIN PRN IV SEE COMMENTS; Start 01/04/18 at 13:00 Active Scripts Active Vitals/I & O Vital Sign - Last 24 Hours 01/04/18 01/04/18 01/04/18 01/04/18 14:08 15:00 15:40 19:00 Temp 97.9 98.5 97.9 98.5 Pulse 90 99 99 Resp 18 18 B/P (MAP) 163/106 150/90 (110) 164/97 (119) Pulse Ox 97 95 O2 Delivery Room Air Room Air Room Air 01/04/18 01/04/18 01/05/18 01/05/18 19:42 22:48 03:25 07:27 Temp 98.4 98.2 98.4 98.2 Pulse 94 65 Resp 18 20 B/P (MAP) 134/95 (108) 147/97 (114) Pulse Ox 97 96 O2 Delivery Room Air Room Air Room Air Room Air 01/05/18 01/05/18 01/05/18 01/05/18 07:45 08:23 11:00 11:18 Temp 98.0 98.1 98.0 98.1 Pulse 90 90 86 Resp 20 18 B/P (MAP) 157/94 (115) 157/94 137/92 (107) Pulse Ox 94 98 O2 Delivery Room Air Room Air Room Air Intake and Output 01/04/18 01/04/18 01/05/18 15:00 23:00 07:00 Intake Total 2050 ml 1025 ml Balance 2050 ml 1025 ml SARAH LOCKETT MD Jan 05, 2018 11:55
[2018-01-05] MEDS ORDERED: INSU100I11 SQ (13:24)
[2018-01-05] MEDS ORDERED: LISI10TA2 PO (13:24)
[2018-01-05] MEDS ORDERED: GLYB5TAB3 PO (13:24)
--- NOTE | 2018-01-05 13:25 | PDOC3 ---
Discharge Summary Visit Information Date of Admission: Jan 04, 2018 Date of Discharge: Jan 05, 2018 Admitting Diagnosis: Bronchitis Final Diagnosis Problems Medical Problems: (1) Bronchitis Status: Acute (2) Diabetes Status: Acute (3) Hypertension Status: Acute (4) Lactic acidosis Status: Acute Brief Hospital Course Allergies Allergies Coded Allergies Type Severity Reaction Last Updated Verified No Known Drug Allergies 11/12/14 No Vital Signs Vital Signs Date Time Temp Pulse Resp B/P (MAP) Pulse Ox O2 Delivery O2 Flow Rate FiO2 01/05/18 11:18 Room Air 01/05/18 11:00 98.1 86 18 137/92 (107) 98 98.1 Lab Results Laboratory Tests Test 01/04/18 05:35 01/04/18 05:41 01/04/18 08:58 01/04/18 11:55 Urine Collection Type Unknown Urine Color Yellow Urine Clarity Clear Urine pH 6.0 Urine Specific [place] >=1.030 Urine Protein 100 mg/dL (NEG-TRACE) Urine Glucose (UA) >=1000 mg/dL (NEG) Urine Ketones (Stick) Negative mg/dL (NEG) Urine Blood Large (NEG) Urine Nitrite Negative (NEG) Urine Bilirubin Negative (NEG) Urine Urobilinogen Dipstick 0.2 mg/dL (0.2 mg/dL) Urine Leukocyte Esterase Negative (NEG) Urine RBC >40 /HPF (0-2) Urine WBC 0 /HPF (0-4) Urine Bacteria 0 /HPF (0-FEW) Urine Opiates Screen Neg (NEG) Urine Methadone Screen Neg (NEG) Urine Barbiturates Neg (NEG) Urine Phencyclidine Screen Neg (NEG) Urine Amphetamine/Methamphetamine Neg (NEG) Urine Benzodiazepines Screen Neg (NEG) Urine Cocaine Screen Neg (NEG) Urine Cannabinoids Screen Neg (NEG) Urine Ethyl Alcohol Neg (NEG) White Blood Count 12.7 x10^3/uL (4.0-11.0) Red Blood Count 4.93 x10^6/uL (3.50-5.40) Hemoglobin 16.8 g/dL (12.0-15.5) Hematocrit 47.0 % (36.0-47.0) Mean Corpuscular Volume 95 fL (79-100) Mean Corpuscular Hemoglobin 34 pg (25-35) Mean Corpuscular Hemoglobin Concent 36 g/dL (31-37) Red Cell Distribution Width 12.9 % (11.5-14.5) Platelet Count 280 x10^3/uL (140-400) Neutrophils (%) (Auto) 78 % (31-73) Lymphocytes (%) (Auto) 15 % (24-48) Monocytes (%) (Auto) 7 % (0-9) Eosinophils (%) (Auto) 0 % (0-3) Basophils (%) (Auto) 0 % (0-3) Neutrophils # (Auto) 9.8 x10^3uL (1.8-7.7) Lymphocytes # (Auto) 1.9 x10^3/uL (1.0-4.8) Monocytes # (Auto) 0.9 x10^3/uL (0.0-1.1) Eosinophils # (Auto) 0.1 x10^3/uL (0.0-0.7) Basophils # (Auto) 0.1 x10^3/uL (0.0-0.2) Prothrombin Time 14.0 SEC (11.7-14.0) Prothromb Time International Ratio 1.1 (0.8-1.1) D-Dimer (Aruna) 0.27 ug/mlFEU (0.00-0.50) Maternal Serum HCG Beta Subunit < 1 mIU/mL (0-5) Sodium Level 135 mmol/L (136-145) Potassium Level 3.9 mmol/L (3.5-5.1) Chloride Level 98 mmol/L (98-107) Carbon Dioxide Level 27 mmol/L (21-32) Anion Gap 10 (6-14) Blood Urea Nitrogen 2 mg/dL (7-20) Creatinine 0.8 mg/dL (0.6-1.0) Estimated GFR (Cockcroft-Gault) 79.4 BUN/Creatinine Ratio 3 (6-20) Glucose Level 327 mg/dL (70-99) Lactic Acid Level 3.8 mmol/L (0.4-2.0) 3.7 mmol/L (0.4-2.0) Calcium Level 9.1 mg/dL (8.5-10.1) Total Bilirubin 0.6 mg/dL (0.2-1.0) Aspartate Amino Transf (AST/SGOT) 34 U/L (15-37) Alanine Aminotransferase (ALT/SGPT) 52 U/L (14-59) Alkaline Phosphatase 125 U/L (46-116) Troponin I Quantitative < 0.017 ng/mL (0.000-0.055) NH-Aoq-R-Type Natriuretic Peptide 30 pg/mL (0-124) Total Protein 8.0 g/dL (6.4-8.2) Albumin 3.4 g/dL (3.4-5.0) Albumin/Globulin Ratio 0.7 (1.0-1.7) Thyroid Stimulating Hormone (TSH) 1.916 uIU/mL (0.358-3.74) Influenza Type A Antigen Negative (NEGATIVE) Influenza Type B Antigen Negative (NEGATIVE) Glucose (Fingerstick) 247 mg/dL (70-99) Test 01/04/18 17:05 01/04/18 20:40 01/05/18 05:10 01/05/18 07:54 Glucose (Fingerstick) 212 mg/dL (70-99) 87 mg/dL (70-99) 109 mg/dL (70-99) White Blood Count 7.7 x10^3/uL (4.0-11.0) Red Blood Count 4.24 x10^6/uL (3.50-5.40) Hemoglobin 14.4 g/dL (12.0-15.5) Hematocrit 40.9 % (36.0-47.0) Mean Corpuscular Volume 96 fL (79-100) Mean Corpuscular Hemoglobin 34 pg (25-35) Mean Corpuscular Hemoglobin Concent 35 g/dL (31-37) Red Cell Distribution Width 13.0 % (11.5-14.5) Platelet Count 242 x10^3/uL (140-400) Neutrophils (%) (Auto) 53 % (31-73) Lymphocytes (%) (Auto) 39 % (24-48) Monocytes (%) (Auto) 6 % (0-9) Eosinophils (%) (Auto) 2 % (0-3) Basophils (%) (Auto) 1 % (0-3) Neutrophils # (Auto) 4.1 x10^3uL (1.8-7.7) Lymphocytes # (Auto) 3.0 x10^3/uL (1.0-4.8) Monocytes # (Auto) 0.5 x10^3/uL (0.0-1.1) Eosinophils # (Auto) 0.1 x10^3/uL (0.0-0.7) Basophils # (Auto) 0.0 x10^3/uL (0.0-0.2) Lactic Acid Level 2.1 mmol/L (0.4-2.0) Test 01/05/18 11:39 Glucose (Fingerstick) 176 mg/dL (70-99) Laboratory Tests Test 01/04/18 17:05 01/04/18 20:40 01/05/18 05:10 01/05/18 07:54 Glucose (Fingerstick) 212 mg/dL (70-99) 87 mg/dL (70-99) 109 mg/dL (70-99) White Blood Count 7.7 x10^3/uL (4.0-11.0) Red Blood Count 4.24 x10^6/uL (3.50-5.40) Hemoglobin 14.4 g/dL (12.0-15.5) Hematocrit 40.9 % (36.0-47.0) Mean Corpuscular Volume 96 fL (79-100) Mean Corpuscular Hemoglobin 34 pg (25-35) Mean Corpuscular Hemoglobin Concent 35 g/dL (31-37) Red Cell Distribution Width 13.0 % (11.5-14.5) Platelet Count 242 x10^3/uL (140-400) Neutrophils (%) (Auto) 53 % (31-73) Lymphocytes (%) (Auto) 39 % (24-48) Monocytes (%) (Auto) 6 % (0-9) Eosinophils (%) (Auto) 2 % (0-3) Basophils (%) (Auto) 1 % (0-3) Neutrophils # (Auto) 4.1 x10^3uL (1.8-7.7) Lymphocytes # (Auto) 3.0 x10^3/uL (1.0-4.8) Monocytes # (Auto) 0.5 x10^3/uL (0.0-1.1) Eosinophils # (Auto) 0.1 x10^3/uL (0.0-0.7) Basophils # (Auto) 0.0 x10^3/uL (0.0-0.2) Lactic Acid Level 2.1 mmol/L (0.4-2.0) Test 01/05/18 11:39 Glucose (Fingerstick) 176 mg/dL (70-99) Brief Hospital Course Ms Trujillo is a 42yo F w/ PMHx DM2 admitted with accelerated HTN, lactic acidosis (no abdominal pain), sepsis syndrome, but likely viral bronchitis, negative influenza and she improved quickly with IVF, nausea control and BP control. Assessment/Plan Sepsis, so far workup negative - Likely acute viral syndrome Flu negative, UA negative, chest are negative for infection Diabetes type 2 with a unknown hemoglobin [id number] medications, previously on insulin with glucosuria HX intolerance to metformin Accelerated hypertension-not diagnosed hypertensive but BP running high despite IV labetalol pushes - improved with HCTZ-lisinopril Overweight, BMI 31 lactate down to 2.1 on repeat After discussion about metformin is contraindicated due to her lactic acidosis, will started glyburide twice a day with meals Sliding scale insulin high-dose Diabetes education Started lisinopril HCTZ-blood pressure Discharge Information Condition at Discharge: Improved Follow Up: Weeks (2) Disposition/Orders: D/C to Home Scheduled Glyburide (Glyburide) 5 Mg Tablet, 5 MG PO BIDWMEALS for DM for 30 Days, #60 Prescribed by: SARAH LOCKETT MD on 01/05/18 1324 Insulin Lispro (Humalog) 100 Unit/1 Ml Insuln.pen, 0 UNITS SQ TIDWMEALS for DM for 30 Days, #1 BG >150 - 4u BG >200 - 5u BG > 250 - 7u BG >300 - 9u Prescribed by: SARAH LOCKETT MD on 01/05/18 1324 Lisinopril (Lisinopril) 10 Mg Tablet, 10 MG PO DAILY for HTN, DM for 30 Days, # 30 Prescribed by: SARAH LOCKETT MD on 01/05/18 1324 Discontinued Medications Albuterol Sulfate (Proair Hfa Inhaler) 8.5 Gm Hfa.aer.ad, 1 PUFF INH PRN Q6HRS PRN for SHORTNESS OF BREATH, #1 Ref 0 Prescribed by: DEVON REEDER MD on 01/04/18 0800 Azithromycin (Azithromycin Tablet) 250 Mg Tablet, 1 PKG PO UD, #6 Prescribed by: DEVON REEDER MD on 01/04/18 0901 Lisinopril (Lisinopril) 10 Mg Tablet, 1 TAB PO DAILY, #30 Ref 0 Prescribed by: DEVON REEDER MD on 01/04/18 0800 Metformin Hcl (Metformin Hcl) 500 Mg Tablet, 500 MG PO BIDWMEALS for ANTI- DIABETIC, #60 Ref 0 Prescribed by: DEVON REEDER MD on 01/04/18 0800 SARAH LOCKETT MD Jan 05, 2018 13:25
[2018-01-05 22:10] LABS: HEMOGLOBIN A1C 8.2 % (4.8-5.6)
== END 2018-01-05 13:50 | disposition home or self-care (01) ==
LOC: ER 04:58 → 6 SOUTH 10:12 → 5 SOUTH 01-05 07:43
PROVIDERS: ADMIT Internal Medicine; ATTEND Internal Medicine
DX: J40 Bronchitis, not specified as acute or chronic (principal); E11.9 Type 2 diabetes mellitus without complications; I10 Essential (primary) hypertension; E87.2 Acidosis; A41.9 Sepsis, unspecified organism; E66.3 Overweight; F17.210 Nicotine dependence, cigarettes, uncomplicated; Z68.31 Body mass index [BMI] 31.0-31.9, adult; Z82.49 Family history of ischemic heart disease and other diseases of the circulatory system
CPT/HCPCS: 36415; 71045; 80053; 80307; 81001; 82962; 83036; 83605; 83880; 84443; 84484; 84702; 85025; 85379; 85610; 87040; 87804; 93005; 94640; 96365; 96372; 96375; 99284; G0378; J0690; J1815; J3490; J7030; J7040; J7620; 96361; G0379

== ENCOUNTER 2019-06-05 15:02 | Emergency (ER) | payer SELFPAY ==
[~2019-06-05] VITALS: Ht 165.1 cm; Wt 81.8 kg
[~2019-06-05 15:02] MED LIST: ALBU2.5V8 INH; AZIT250T6 PO; GLYB5TAB3 PO; INSU100I11 SQ; LISI10TA2 PO; METF500T16 PO
[2019-06-05] MEDS ORDERED: HYDR-3164 PO (15:28)
[2019-06-05] MEDS ORDERED: CLIN300C8 PO (15:28)
--- NOTE | 2019-06-05 15:28 | PHYS DOC ---
Past Medical History Past Medical History: Diabetes-Type II, Hypertension Past Surgical History: Cholecystectomy Smoking Status: Current Every Day Smoker Alcohol Use: Occasionally Drug Use: None General Adult EDM: Chief Complaint: DENTAL PROBLEM HPI: HPI: Patient is a 44-year-old female with very poor dentition as well as diabetes who presents with painful swollen right upper jaw. She states is been going on for a few days. She has no pain when she opens her mouth she is able to swallow without difficulty. She has not had any fever chills or sweats. [] Review of Systems: Review of Systems: Constitutional: Denies fever or chills. [] Eyes: Denies change in visual acuity. [] HENT: D Per HPI. [] Respiratory: Denies cough or shortness of breath. [] Cardiovascular: Denies chest pain or edema. [] GI: Denies abdominal pain, nausea, vomiting, bloody stools or diarrhea. [] : Denies dysuria. [] Musculoskeletal: Denies back pain or joint pain. [] Integument: Denies rash. [] Neurologic: Denies headache, focal weakness or sensory changes. [] Endocrine: Denies polyuria or polydipsia. [] Lymphatic: Denies swollen glands. [] Psychiatric: Denies depression or anxiety. [] Heart Score: Risk Factors: Risk Factors: DM, Current or recent (<one month) smoker, HTN, HLP, family history of CAD, obesity. Risk Scores: Score 0 - 3: 2.5% MACE over next 6 weeks - Discharge Home Score 4 - 6: 20.3% MACE over next 6 weeks - Admit for Clinical Observation Score 7 - 10: 72.7% MACE over next 6 weeks - Early Invasive Strategies Allergies: Allergies: Allergies Coded Allergies Type Severity Reaction Last Updated Verified No Known Drug Allergies 11/12/14 No Physical Exam: PE: Constitutional: Well developed, well nourished, mild distress, non-toxic appearance. [] HENT: Widespread dental decay with red swollen gums surrounding the carious teeth the entire right upper gum no obvious abscess noted no evidence of Dakota's angina [] Eyes: PERRLA, EOMI, conjunctiva normal, no discharge. [] Neck: Normal range of motion, no tenderness, supple, no stridor. [] Cardiovascular: Tachycardic no murmur [] Lungs & Thorax: Bilateral breath sounds clear to auscultation [] Abdomen: Bowel sounds normal, soft, no tenderness, no masses, no pulsatile masses. [] Skin: Warm, dry, no erythema, no rash. [] Back: No tenderness, no CVA tenderness. [] Extremities: No tenderness, no cyanosis, no clubbing, ROM intact, no edema. [] Neurologic: Alert and oriented X 3, normal motor function, normal sensory function, no focal deficits noted. [] Psychologic: Affect normal, judgement normal, mood normal. [] EKG: EKG: [] Radiology/Procedures: Radiology/Procedures: [] Course & Med Decision Making: Course & Med Decision Making Pertinent Labs and Imaging studies reviewed. (See chart for details) [ED course: Evaluation reveals a 44-year-old female with what appears to be a very typical dental/gingival infection. She was given clindamycin for this. Incidentally it was noted that she was tachycardic. Upon questioning she states that she gets a fast heart rate every time she goes to the doctor. She denies any chest pain. She denies palpitations. She has not had any fever chills or sweats. In fact, she states she has been watching that very closely. She has not had any nausea vomiting or diarrhea. She states she has been eating and drinking normally.] CRITICAL CARE: Time spent was 35 minutes. This includes medical management, evaluation, reevaluation, discussion with consultants and family. Critical Care does NOT include time spent on separately billed procedures. Dragon Disclaimer: Dragon Disclaimer: This electronic medical record was generated, in whole or in part, using a voice recognition dictation system. Departure Departure Impression: Primary Impression: Dental infection Additional Impressions: Sinus tachycardia Hypertension Qualified Codes: I10 - Essential (primary) hypertension Disposition: HOME, SELF-CARE Condition: IMPROVED Referrals: NO PCP (PCP) Patient Instructions: Dental Abscess, Dental Caries, Diet and Dental Disease, Hypertension, Nonspecific Tachycardia Scripts Metoprolol Succinate (METOPROLOL SUCCINATE ( XL )) 25 Mg Tab.er.24h 1 TAB PO DAILY, #90 TAB 3 Refills Prov: BECKI HERRERA DO 4/25/20 Hydrocodone/Apap 5-325 (NORCO 5-325 TABLET) 1 Each Tablet 1 TAB PO PRN Q6HRS PRN for PAIN, #12 TAB 0 Refills Prov: BECKI HERRERA DO 06/05/19 Clindamycin Hcl (CLINDAMYCIN HCL) 300 Mg Capsule 1 CAP PO TID for Infection, #30 CAP Prov: BECKI HERRERA DO 06/05/19 BECKI HERRERA DO Jun 05, 2019 15:28
[2019-06-05] MEDS ORDERED: CLINDAMYCIN HCL 150 MG CAPSULE. PO ONE (15:30)
[2019-06-05] MEDS ORDERED: IV NORMAL SALINE 1000ML BAG 1,000 ML IV ONE (15:45)
[2019-06-05] MEDS ORDERED: KETOROLAC 30 MG/ML VIAL. IV ONE (16:00)
[2019-06-05] MEDS ORDERED: oxyCODONE/APAP 5/325 1 TAB TABLET PO ONE (16:00)
[2019-06-05 16:09] LABS: BASO # 0.1 x10^3/uL (0.0-0.2); BASO % 1 % (0-3); EOS # 0.1 x10^3/uL (0.0-0.7); EOS % 1 % (0-3); HEMOGLOBIN 14.5 g/dL (12.0-15.5); LYMPH # 2.1 x10^3/uL (1.0-4.8); LYMPH % 16 % (24-48); MEAN CORPUSCULAR HEMOGLOBIN 34 pg (25-35); MEAN CORPUSCULAR HGB CONC 35 g/dL (31-37); MEAN CORPUSCULAR VOLUME 98 fL (79-100); MONO % 8 % (0-9); NEUT # 9.7 x10^3/uL (1.8-7.7); NEUT % 75 % (31-73); PLATELET COUNT 231 x10^3/uL (140-400); WHITE BLOOD COUNT 12.9 x10^3/uL (4.0-11.0)
[2019-06-05 16:18] LABS: CALCIUM 8.8 mg/dL (8.5-10.1); CREATININE 0.6 mg/dL (0.6-1.0); GFR 109.6; POTASSIUM 3.6 mmol/L (3.5-5.1)
[2019-06-05 16:25] LABS: ALBUMIN 3.3 g/dL (3.4-5.0); ALBUMIN/GLOBULIN RATIO 0.9 (1.0-1.7); TOTAL BILIRUBIN 0.4 mg/dL (0.2-1.0); TOTAL PROTEIN 7.1 g/dL (6.4-8.2)
[2019-06-05] MEDS ORDERED: LABETALOL 20 MG/4 ML DISP.SYRIN. IVP ONE (17:15)
[2019-06-05] MEDS ORDERED: METO-239 PO (17:35)
[2019-06-05 17:55] VITALS: BP 139/77
--- NOTE | 2019-06-05 20:01 | EKG ---
[facility] [address] [place] [id number] Test Date: 2019-06-05 Test Time: 17:06:54 Pat Name: JAIDEN FAN Department: Room: Gender: F Welfare Director: : 1975 Requested By: BECKI HERRERA Order Number: [id number] Reading MD: Vern Valencia Measurements Intervals [place] Rate: 116 P: 56 IL: 116 QRS: 62 QRSD: 84 T: 44 QT: 340 QTc: 478 Interpretive Statements SINUS TACHYCARDIA Electronically Signed On 06-06-2019 20:16:43 CDT by Vern Valencia
== END 2019-06-05 18:03 | disposition home or self-care (01) ==
LOC: ER 15:02
DX: K04.6 Periapical abscess with sinus (principal); R68.84 Jaw pain; I47.1 Supraventricular tachycardia; I10 Essential (primary) hypertension; E11.9 Type 2 diabetes mellitus without complications; F17.200 Nicotine dependence, unspecified, uncomplicated; Z90.49 Acquired absence of other specified parts of digestive tract
CPT/HCPCS: 36415; 80053; 85025; 93005; 96374; 96375; 99285; J1885; J3490; J7030